=== PATIENT | male | born 1990 | race Caucasian/White ===

== ENCOUNTER → 2018-04-13 | Outpatient (CLI) | payer BC ==
--- NOTE | 2018-04-13 13:40 | DIAGNOSTIC IMAGING REPORT ---
(TESTICULAR) SCROTUM-CONT CLINICAL HISTORY: 28 years-old Male presenting with TESTICULAR MASS. TECHNIQUE: Real-time grayscale and color and spectral Doppler ultrasound imaging of the scrotum was performed. COMPARISON: CT of abdomen pelvis from 11/05/2014. FINDINGS: Right testis: Normal echogenicity and echotexture. Testis measures 5.2 x 1.9 x 3.0 cm. Normal color Doppler flow and arterial and venous waveforms in the testicular parenchyma. Epididymal head normal. Small hydrocele. No varicocele. Left testis: Normal echogenicity and echotexture. Testis measures 4.7 x 2.1 x 3.1 cm. Normal color Doppler flow and arterial and venous waveforms in the testicular parenchyma. Epididymal head normal. Trace hydrocele. No varicocele. Symmetric perfusion of the testes. Other: At the site of clinical interest in the midline scrotum, an ill-defined isoechoic to hyperechoic masslike region measures 3.4 x 2.2 x 2.1 cm. This demonstrates hyperemia throughout. IMPRESSION: 1. Extratesticular, scrotal/skin vascular masslike region in the midline at the site of clinical concern. No evidence of abscess. This may represent cellulitis and/or phlegmonous changes. Correlate clinically for signs of infection. This should be followed to resolution. 2. No evidence of testicular torsion. 3. Small right and trace left hydrocele. Electronically signed by: John Gutierrez M.D. 04/13/2018 1:39 PM Dictated Date/Time: 04/13/2018 1:36 PM
== END | disposition home or self-care (01) ==
LOC: C.ULTRBC 12:50
PROVIDERS: ATTEND Family Medicine
DX: N50.9 Disorder of male genital organs, unspecified (principal)